=== PATIENT | female | born 1985 | race Two or more races ===

== ENCOUNTER 2019-12-31 00:31 | Emergency (ER) | payer OTHER ==
[~2019-12-31] VITALS: Ht 157.5 cm; Wt 56.7 kg
[2019-12-31] MEDS ORDERED: OLANZAPINE 10 MG VIAL IM ONE (01:29)
[2019-12-31 01:37] LABS: BASOPHILS # (AUTO) 0.1 /CMM (0.0-0.2); BASOPHILS % (AUTO) 0.6 % (0.0-2.0); EOSINOPHILS % (AUTO) 0.1 % (0.0-6.0); HEMATOCRIT 43 % (33-45); HEMOGLOBIN 14.4 g/dL (11.5-14.8); LYMPHOCYTES # (AUTO) 2.1 /CMM (0.8-4.8); LYMPHOCYTES % (AUTO) 21.8 % (20.0-44.0); MEAN CORPUSCULAR HGB CONC 34 g/dl (31.0-36.0); MEAN CORPUSCULAR VOLUME 90 fL (82-100); MONOCYTES # (AUTO) 0.7 /CMM (0.1-1.30); NEUTROPHILS # (AUTO) 6.7 /CMM (1.8-8.9); NEUTROPHILS % (AUTO) 70.5 % (43.0-81.0); PLATELET COUNT (AUTO) 243 /CMM (150-450); RED BLOOD CELL COUNT(AUTO) 4.73 MIL/uL (4.0-5.2); WHITE BLOOD COUNT (AUTO) 9.5 K/uL (4.3-11.0)
[2019-12-31] MEDS: OLANZAPINE 10 MG VIAL IM ONE (01:42)
[2019-12-31 01:51] LABS: CALCIUM, SERUM 9.5 mg/dL (8.5-10.1); CARBON DIOXIDE 24 mmol/L (21-32); CHLORIDE 104 mmol/L (98-107); CREATININE 0.9 mg/dL (0.6-1.3); GLUCOSE 111 mg/dL (74-106); POTASSIUM 3.8 mmol/L (3.5-5.1); SODIUM SERUM 139 mmol/L (136-145); UREA NITROGEN, BLOOD 17 mg/dL (7-18)
[2019-12-31 01:55] LABS: ALANINE AMINOTRANSFERASE 19 U/L (12-78); ALBUMIN 4.3 g/dL (3.4-5.0); ALCOHOL, BLOOD < 3 mg/dL (0-0); ALKALINE PHOSPHATASE 59 U/L (46-116); ASPARTATE AMINOTRANSFERASE 16 U/L (15-37); BILIRUBIN,DIRECT 0.2 mg/dL (0.0-0.2); BILIRUBIN,TOTAL 1.1 mg/dL (0.2-1.0); TOTAL PROTEIN, SERUM 8.1 g/dL (6.4-8.2)
[2019-12-31 01:56] LABS: ACETAMINOPHEN < 2 ug/ml (10-30); SALICYLATE 2.3 mg/dL (2.8-20.0)
[2019-12-31 04:27] LABS: APPEARANCE,URINE Slightly Cloudy (CLEAR); BILIRUBIN,URINE SMALL (NEGATIVE); BLOOD, URINE Large Ery/uL (NEGATIVE); COLOR,URINE Orange (YELLOW); KETONES,URINE 80 (NEGATIVE); LEUKOCYTE ESTERASE ,URINE Negative (NEGATIVE); NITRITE, URINE Negative (NEGATIVE); PH,URINE 5.5 (5.0-8.0); PROTEIN,URINE 100 mg/dl (NEGATIVE); UGLUCOSE Negative (NEGATIVE); UROBILINOGEN,URINE 0.2 EU/dL (0.2)
[2019-12-31 04:36] LABS: BACTERIA,URINE Many /HPF (None Seen); SQUAMOUS EPITHELIAL CELL,UR Many /HPF (None Seen)
[2019-12-31 04:41] LABS: MUCUS,URINE Moderate /LPF (None Seen); RBC,URINE 81-100 /HPF (0-2)
[2019-12-31 06:30] VITALS: BP 123/74
== END 2019-12-31 06:31 | disposition home or self-care (01) ==
LOC: EDBD 00:32 → ER 00:32
DX: R41.0 Disorientation, unspecified (principal); F15.159 Other stimulant abuse with stimulant-induced psychotic disorder, unspecified; R45.1 Restlessness and agitation; F60.0 Paranoid personality disorder
CPT/HCPCS: 36415; 80048-TC; 80076-TC; 80305; 81000-TC; 84703-TC; 85025-TC; 87086-TC; G0480; J3490